=== PATIENT | male | born 1965 | race African-American/Black ===

== ENCOUNTER 2020-11-27 15:11 | Inpatient (IN) | payer OTHER ==
[~2020-11-27] VITALS: Ht 188 cm; Wt 96.3 kg
--- NOTE | 2020-11-27 15:36 | NUR ---
BIBS FROM HOME TO ER BED 2. AAOX4. NOT IN RESP DISTRESS, BREATHING EVENA DN UNLABORED. AMBULATORY. CAME IN FOR MID STERNAL CP STARTED @ 1300. PAIN IS 3/10 SHARP NON RADIATING. PT IS NOPTED WITH BILAT LOWER EXTREMETIES. MD WAS AT THE BEDSIDE FOR EVAL. ORDERS RECEIVED, NOTED AND CARRIED OUT. IV LINE ESTABLISHED ON R HAND 20G, BLOOD DRAWN AND GIVEN TO JUNIOR UNDERWRITER. PT ON MONITOR.
[2020-11-27] MEDS ORDERED: ASPIRIN 325 MG TABLET PO ONE (16:30)
[2020-11-27] MEDS ORDERED: FUROSEMIDE 40 MG/4 ML VIAL IV ONE (16:30)
[2020-11-27] MEDS ORDERED: ASPI-1169 PO (16:40)
[2020-11-27] MEDS ORDERED: FURO-144 PO (16:40)
[2020-11-27] MEDS ORDERED: CEPH250C PO (16:40)
[2020-11-27] MEDS ORDERED: CARV25TA2 PO (16:40)
[2020-11-27 16:45] LABS: BASOPHILS # (AUTO) 0.1 /CMM (0.0-0.2); BASOPHILS % (AUTO) 0.7 % (0.0-2.0); EOSINOPHILS % (AUTO) 2.5 % (0.0-6.0); HEMATOCRIT 45 % (39-51); HEMOGLOBIN 14.6 g/dL (13.5-17.5); LYMPHOCYTES # (AUTO) 1.1 /CMM (0.8-4.8); LYMPHOCYTES % (AUTO) 12.6 % (20.0-44.0); MEAN CORPUSCULAR HGB CONC 33 g/dl (31.0-36.0); MEAN CORPUSCULAR VOLUME 90 fL (80-96); MONOCYTES # (AUTO) 0.7 /CMM (0.1-1.30); MONOCYTES % (AUTO) 7.8 % (2.0-12.0); NEUTROPHILS # (AUTO) 6.5 /CMM (1.8-8.9); NEUTROPHILS % (AUTO) 76.4 % (43.0-81.0); PLATELET COUNT (AUTO) 181 /CMM (150-450); RED BLOOD CELL COUNT(AUTO) 4.97 MIL/uL (4.5-6.0); WHITE BLOOD COUNT (AUTO) 8.5 K/uL (4.3-11.0)
[2020-11-27 16:50] LABS: CALCIUM, SERUM 8.4 mg/dL (8.5-10.1); CARBON DIOXIDE 22 mmol/L (21-32); CHLORIDE 105 mmol/L (98-107); CREATININE 1.4 mg/dL (0.6-1.3); GLUCOSE 118 mg/dL (74-106); POTASSIUM 4.1 mmol/L (3.5-5.1); SODIUM SERUM 139 mmol/L (136-145); UREA NITROGEN, BLOOD 18 mg/dL (7-18)
[2020-11-27] MEDS ORDERED: ASPIRIN 325 MG TABLET ONE (16:55)
[2020-11-27] MEDS ORDERED: FUROSEMIDE 40 MG/4 ML VIAL ONE (16:55)
[2020-11-27 17:03] LABS: ALANINE AMINOTRANSFERASE 65 U/L (12-78); ALBUMIN 3.2 g/dL (3.4-5.0); ALKALINE PHOSPHATASE 133 U/L (46-116); ASPARTATE AMINOTRANSFERASE 41 U/L (15-37); B-TYPE NATRIURETIC PEPTIDE 3147 PG/ML (0-125); BILIRUBIN,DIRECT 0.4 mg/dL (0.0-0.2); BILIRUBIN,TOTAL 1.7 mg/dL (0.2-1.0); TOTAL PROTEIN, SERUM 7.1 g/dL (6.4-8.2)
--- NOTE | 2020-11-27 17:09 | NUR ---
PT PLACED ON O2 VIA NC @ 4LPM VIA NC D/T PT WAS NOTED WITH 02 SAT @ 89%
--- NOTE | 2020-11-27 18:16 | NUR ---
[facility] CALLED HEAVY FORGER PAGED.
--- NOTE | 2020-11-27 18:41 | NUR ---
ROOM ASSIGNMENT: [id number]
--- NOTE | 2020-11-27 19:16 | NUR ---
Call from lab. Rapid covid negative.
--- NOTE | 2020-11-27 19:29 | NUR ---
REPORT GIVEN TO YAIMA MASSEY FOR GUSTAVO
[2020-11-27 19:40] VITALS: BP 158/104
--- NOTE | 2020-11-27 19:40 | NUR ---
CHIEF INSPECTORCHAIR CAR DRIVER NOTE RECEIVED REPORT FROM REBECCA CARBALLO RN. PATIENT ADMITTED TO TELE. PATIENT A/O X3 ABLE TO MAKE NEEDS KNOWN. ON ROOM; TOLERATING WELL WITH NO SOB; DRY COUGH NOTED. EXTERNAL TRUCK BODY BUILDER READS NSR AT 83. PATIENT DENIES PAIN OR DISCOMFORT AT THIS TIME. SKIN IS INTACT; BLE +1 NONPITTING EDEMA NOTED. RIGHT HAND #20G; PATENT AND INTACT. ORIENTED PATIENT TO STAFF, UNIT, AND ROOM. ALL BELONGINGS ACCOUNTED FOR AND SIGNED PATIENT BELONGINGS LIST. SAFETY MEASURES IN PLACE: BED IN LOWEST LOCKED POSITION; SIDE RAILS UP X2, CALL LIGHT WITHIN EASY REACH, BED ALARMS ON. PATIENT IS IN STABLE CONDITION, WILL CONTINUE PLAN OF CARE.
[2020-11-27 21:40] VITALS: BP 158/104
[2020-11-27] MEDS ORDERED: ZOLPIDEM TARTRATE 5 MG TABLET PO PRN (22:00)
[2020-11-27] MEDS ORDERED: Z GUARD REMEDY 2 OZ OINT TP PRN (22:00)
[2020-11-27] MEDS ORDERED: VANCOMYCIN HCL 1.25 GM in IV D5W 260 ML IV ONE (22:00)
[2020-11-27] MEDS ORDERED: ACETAMINOPHEN 325 MG TABLET PO PRN (22:00)
[2020-11-27] MEDS ORDERED: HYDROCODONE/APAP 10/325MG TABLET PO PRN (22:00)
[2020-11-27] MEDS ORDERED: ONDANSETRON HCL/PF 4 MG/2 ML VIAL IVP PRN (22:00)
[2020-11-27] MEDS ORDERED: BUMETANIDE INJ 8 MG in IV NS 0.9% 48 ML IV ONE (22:00)
[2020-11-27] MEDS ORDERED: VANCOMYCIN 1 GM VIAL ONE (22:20)
[2020-11-27] MEDS ORDERED: BUMETANIDE INJ 0.25 MG/ML VIAL ONE (22:46)
[2020-11-27] MEDS: ENOXAPARIN SODIUM 40 MG/0.4 ML DISP.SYRIN SQ SCH (22:55)
[2020-11-27] MEDS ORDERED: VANCOMYCIN 1 GM in IV D5W 250 ML IV ONE (23:00)
[2020-11-28] VITALS: BP 127/79
[2020-11-28 04:00] VITALS: BP_SYST 112; BP_SYST 146; BP_DIAS 81; BP_DIAS 90
[2020-11-28 05:07] LABS: BASOPHILS # (AUTO) 0.1 /CMM (0.0-0.2); BASOPHILS % (AUTO) 1.1 % (0.0-2.0); EOSINOPHILS % (AUTO) 3.3 % (0.0-6.0); HEMATOCRIT 47 % (39-51); HEMOGLOBIN 15.2 g/dL (13.5-17.5); LYMPHOCYTES # (AUTO) 1.1 /CMM (0.8-4.8); LYMPHOCYTES % (AUTO) 15.2 % (20.0-44.0); MEAN CORPUSCULAR HGB CONC 33 g/dl (31.0-36.0); MEAN CORPUSCULAR VOLUME 91 fL (80-96); MONOCYTES # (AUTO) 0.6 /CMM (0.1-1.30); MONOCYTES % (AUTO) 9.1 % (2.0-12.0); NEUTROPHILS # (AUTO) 4.9 /CMM (1.8-8.9); NEUTROPHILS % (AUTO) 71.3 % (43.0-81.0); PLATELET COUNT (AUTO) 195 /CMM (150-450); RED BLOOD CELL COUNT(AUTO) 5.14 MIL/uL (4.5-6.0); WHITE BLOOD COUNT (AUTO) 6.9 K/uL (4.3-11.0)
[2020-11-28 05:36] LABS: CALCIUM, SERUM 8.9 mg/dL (8.5-10.1); CREATININE 1.6 mg/dL (0.6-1.3); MAGNESIUM 1.9 mg/dL (1.8-2.4); PHOSPHORUS 4.3 mg/dL (2.5-4.9); POTASSIUM 4.8 mmol/L (3.5-5.1)
[2020-11-28 05:37] LABS: THYROID STIMULATING HORMONE 1.612 uIU/mL (0.358-3.74)
--- NOTE | 2020-11-28 06:48 | NUR ---
OPERATIONS SUPPORT MANAGER CLOSING NOTE PATIENT A/O X4 ABLE TO MAKE NEEDS KNOWN. ON ROOM; TOLERATING WELL WITH NO SOB; DRY COUGH NOTED. EXTERNAL AIRPLANE PILOT HELPER READS NSR AT 82. PATIENT DENIES PAIN OR DISCOMFORT AT THIS TIME. SKIN IS INTACT; BLE +1 NONPITTING EDEMA NOTED. RIGHT HAND #20G; INFUSING BUMEX @ 10ML/HR PATENT AND INTACT. SAFETY MEASURES IN PLACE: BED IN LOWEST LOCKED POSITION; SIDE RAILS UP X2, CALL LIGHT WITHIN EASY REACH, BED ALARMS ON. PATIENT IS IN STABLE CONDITION, WILL ENDORSE PLAN OF CARE TO ONCOMING MORNING RN.
--- NOTE | 2020-11-28 07:04 | NUR ---
BAKING FACTORY WORKER OPENING NOTE RECEIVED PATIENT AWAKE IN BED. A/O X4. PT STABLE ON ROOM AIR. NO SOB NOTED. NO S/S OF RESPIRATORY DISTRESS. PATIENT IS ON EXTERNAL TELE ABSORPTION OPERATOR READING SR 77. NO C/O PAIN AT THIS TIME. IV ACCESS ON RIGHT HAND 20G INTACT, PATENT, AND FLUSHING WELL. SAFETY MEASURES MAINTAINED AT ALL TIMES. BED IN LOWEST LOCKED POSITION. SIDE RAILS UP X2. CALL LIGHT AND TABLE WITHIN REACH. WILL CONTINUE WITH PLAN OF CARE.
[2020-11-28 08:00] VITALS: BP 112/79
[2020-11-28] MEDS: ASPIRIN 81 MG TAB.CHEW PO SCH (08:17)
[2020-11-28] MEDS: FUROSEMIDE 40 MG TABLET PO SCH ×2 (08:18→16:34)
[2020-11-28] MEDS: CARVEDILOL 12.5 MG TABLET PO SCH ×2 (08:19→16:36)
[2020-11-28] MEDS: VANCOMYCIN 1.25 GM in IV D5W 250 ML IV SCH ×2 (11:35→23:30)
[2020-11-28 11:59] VITALS: BP 94/54
--- NOTE | 2020-11-28 12:33 | NUR ---
IV DISLODGED, PRESSURE APPLIED, SECURED WITH GAUZE AND TAPE.NO S/O BLEEDING OR INFILTRATION NOTED INSERTED IV IN RAC G#18, GOOD BLOOD RETURN NOTED, IV INTACT PATENT AND FLUSHING WELL. PT TOLERATED WELL, WILL CONTINUE WITH PLAN OF CARE
[2020-11-28 15:23] LABS: BILIRUBIN,URINE NEGATIVE (NEGATIVE); COLOR,URINE YELLOW (YELLOW); LEUKOCYTE ESTERASE ,URINE NEGATIVE (NEGATIVE); NITRITE, URINE NEGATIVE (NEGATIVE); PROTEIN,URINE NEGATIVE (NEGATIVE); UGLUCOSE NEGATIVE (NEGATIVE); UROBILINOGEN,URINE 0.2 EU/dL (0.2)
[2020-11-28 15:28] LABS: EOSINOPHIL,URINE None Seen
[2020-11-28 15:30] LABS: CREATININE, URINE < 13.0 MG/DL (30.0-125.0); URINE SODIUM, RANDOM 131 mmol/l (40-220)
[2020-11-28 15:32] LABS: URINE TOTAL PROTEIN < 6.0 mg/dL (0-11.9)
[2020-11-28 16:00] VITALS: BP_SYST 103; BP_SYST 107; BP_DIAS 65; BP_DIAS 83
--- NOTE | 2020-11-28 19:10 | NUR ---
GENERAL INTERNAL MEDICINE DOCTOR CLOSING NOTES PT AWAKE IN BED AT THIS TIME. PT REMAINED STABLE THROUGHOUT SHIFT. ALL CARE, NEEDS, MEDICATIONS AND TREATMENT ADMINISTERED ANTICIPATED PER ORDER. SAFETY PRECAUTIONS IN PLACE AND MAINTAINED AT ALL TIMES. BED IN LOWEST LOCKED POSITION, HOB ELEVATED, SIDE RAILS UPX2, CALL LIGHT AND TABLE WITHIN REACH. WILL ENDORSE TO PUSH BUTTON SWITCH ASSEMBLER NURSE FOR GUSTAVO
[2020-11-28 20:00] VITALS: BP 125/83
[2020-11-28] MEDS: ENOXAPARIN SODIUM 40 MG/0.4 ML DISP.SYRIN SQ SCH (20:29)
[2020-11-29] VITALS: BP 112/78
[2020-11-29 04:00] VITALS: BP 112/81
[2020-11-29 06:20] LABS: BASOPHILS % (AUTO) 0.8 % (0.0-2.0); EOSINOPHILS % (AUTO) 3.3 % (0.0-6.0); HEMATOCRIT 49 % (39-51); HEMOGLOBIN 16.1 g/dL (13.5-17.5); LYMPHOCYTES # (AUTO) 1.3 /CMM (0.8-4.8); LYMPHOCYTES % (AUTO) 19.9 % (20.0-44.0); MEAN CORPUSCULAR HGB CONC 33 g/dl (31.0-36.0); MEAN CORPUSCULAR VOLUME 91 fL (80-96); MONOCYTES # (AUTO) 0.7 /CMM (0.1-1.30); MONOCYTES % (AUTO) 11.1 % (2.0-12.0); NEUTROPHILS # (AUTO) 4.1 /CMM (1.8-8.9); NEUTROPHILS % (AUTO) 64.9 % (43.0-81.0); PLATELET COUNT (AUTO) 199 /CMM (150-450); WHITE BLOOD COUNT (AUTO) 6.3 K/uL (4.3-11.0)
[2020-11-29 07:00] LABS: ALBUMIN 2.9 g/dL (3.4-5.0); BILIRUBIN,TOTAL 1.9 mg/dL (0.2-1.0); CALCIUM, SERUM 8.6 mg/dL (8.5-10.1); CREATININE 1.5 mg/dL (0.6-1.3); MAGNESIUM 2.3 mg/dL (1.8-2.4); PHOSPHORUS 4.2 mg/dL (2.5-4.9); POTASSIUM 3.8 mmol/L (3.5-5.1); TOTAL PROTEIN, SERUM 6.9 g/dL (6.4-8.2)
--- NOTE | 2020-11-29 07:02 | NUR ---
BUTT PRESSER OPENING NOTE RECEIVED PATIENT AWAKE IN BED. A/O X4. PT STABLE ON ROOM AIR. NO SOB NOTED. NO S/S OF RESPIRATORY DISTRESS. PATIENT IS ON EXTERNAL TELE AUTOMOBILE BODY WORKER READING SR 73. NO C/O PAIN AT THIS TIME. IV ACCESS IN RAC 18G INTACT, PATENT, AND FLUSHING WELL. SAFETY MEASURES MAINTAINED AT ALL TIMES. BED IN LOWEST LOCKED POSITION. SIDE RAILS UP X2. CALL LIGHT AND TABLE WITHIN REACH. WILL CONTINUE WITH PLAN OF CARE. Addendum: 11/29/20 at 0757 by ANGELA CROWELL RN MS RN OPENING NOTE RECEIVED PATIENT AWAKE IN BED. A/O X4. PT STABLE ON ROOM AIR. NO SOB NOTED. NO S/S OF RESPIRATORY DISTRESS. NO C/O PAIN AT THIS TIME. IV ACCESS IN RAC 18G INTACT, PATENT, AND FLUSHING WELL. SAFETY MEASURES MAINTAINED AT ALL TIMES. BED IN LOWEST LOCKED POSITION. SIDE RAILS UP X2. CALL LIGHT AND TABLE WITHIN REACH. WILL CONTINUE WITH PLAN OF CARE.
[2020-11-29 08:00] VITALS: BP 147/99
[2020-11-29] MEDS: ASPIRIN 81 MG TAB.CHEW PO SCH (09:17)
[2020-11-29] MEDS: FUROSEMIDE 40 MG TABLET PO SCH ×2 (09:17→16:16)
[2020-11-29] MEDS: CARVEDILOL 12.5 MG TABLET PO SCH ×2 (09:18→16:17)
[2020-11-29] MEDS: VANCOMYCIN 1.25 GM in IV D5W 250 ML IV SCH (11:45)
[2020-11-29 12:00] VITALS: BP 123/85
--- NOTE | 2020-11-29 13:16 | NUR ---
RECEIVED ORDERS FROM DR. MILLER TO KEEP PT NPO POST MIDNIGHT FOR LEFT AND RIGHT HEART CATHETERIZATION SCHEDULED 11/30/2020. ORDERS READ BACK AND CARRIED OUT. WILL CONTINUE WITH PLAN OF CARE.
[2020-11-29 15:55] VITALS: BP 134/93
--- NOTE | 2020-11-29 18:29 | NUR ---
FLEECE TIER CLOSING NOTE PT AWAKE IN BED AT THIS TIME. PT REMAINED STABLE THROUGHOUT SHIFT. IV ACCESS IS INTACT AND PATENT. ALL CARE, NEEDS, MEDICATIONS AND TREATMENT ADMINISTERED ANTICIPATED PER ORDER. SAFETY PRECAUTIONS IN PLACE AND MAINTAINED AT ALL TIMES. BED IN LOWEST LOCKED POSITION, HOB ELEVATED, SIDE RAILS UP X2. CALL LIGHT AND TABLE WITHIN REACH. WILL ENDORSE TO ONCOMING NIGHT NURSE FOR CONTINUITY OF CARE.
--- NOTE | 2020-11-29 19:30 | NUR ---
TOWEL SEWER OPENING NOTE PT AWAKE IN BED AT THIS TIME. SAFETY PRECAUTIONS IN PLACE BED LOW LOCED SR X2. CALL LIGHT AND TABLE WITHIN REACH. VERBALIZED UNDERSTANDING TO CALL FOR ASSISTANCE IF NEEDED. ON OUTPATIENT FACILITY PHYSICAL THERAPIST READS SR. CORNELLIES CP. VANG TO BE NPO TONIGHT AT MIDNIGHT FOR PLANNED HEART CATH IN AM. PT VERBALIZED UNDERSTANDING. WILL CONT TO MONITOR.
[2020-11-29] MEDS: ENOXAPARIN SODIUM 40 MG/0.4 ML DISP.SYRIN SQ SCH (19:45)
--- NOTE | 2020-11-29 19:45 | NUR ---
CONTACTED ANGELA REGARDING LOVENOX SCHEDULED FOR TONIGHT. PT SCHEDULED FOR BELLHOP CAPTAIN IN THE AM. NEW ORDER TO HOLD LEE LOVENOX GIVEN.
[2020-11-29 20:07] VITALS: BP 96/63
[2020-11-29] MEDS ORDERED: VANCOMYCIN 1 GM in IV D5W 250ml IV SCH (23:00)
[2020-11-30 00:08] VITALS: BP 101/50
[2020-11-30 04:07] VITALS: BP 123/94
--- NOTE | 2020-11-30 06:34 | NUR ---
pm rn closing note patient in bed alert and oriented. patient is having second thoughts of having heart cath today. pt agreed remain npo until seen by doctors and quality lab assoc nurse. pt stabel cardiac monitor technician reads sr in 60's iv patent rigth ac##18 flushed. will cont to monitor and endorse to oncoming shift.
[2020-11-30 06:41] LABS: BASOPHILS # (AUTO) 0.1 /CMM (0.0-0.2); CALCIUM, SERUM 8.5 mg/dL (8.5-10.1); CREATININE 1.5 mg/dL (0.6-1.3); EOSINOPHILS % (AUTO) 3.1 % (0.0-6.0); HEMATOCRIT 48 % (39-51); HEMOGLOBIN 15.9 g/dL (13.5-17.5); LYMPHOCYTES # (AUTO) 1.2 /CMM (0.8-4.8); LYMPHOCYTES % (AUTO) 18.7 % (20.0-44.0); MEAN CORPUSCULAR HGB CONC 33 g/dl (31.0-36.0); MEAN CORPUSCULAR VOLUME 90 fL (80-96); MONOCYTES # (AUTO) 0.7 /CMM (0.1-1.30); MONOCYTES % (AUTO) 11.6 % (2.0-12.0); NEUTROPHILS # (AUTO) 4.1 /CMM (1.8-8.9); NEUTROPHILS % (AUTO) 65.6 % (43.0-81.0); PLATELET COUNT (AUTO) 194 /CMM (150-450); POTASSIUM 3.9 mmol/L (3.5-5.1); RED BLOOD CELL COUNT(AUTO) 5.36 MIL/uL (4.5-6.0); WHITE BLOOD COUNT (AUTO) 6.3 K/uL (4.3-11.0)
[2020-11-30] MEDS ORDERED: IV SET PRIMARY PUMP SET 1 EA INFUS.SET MC ONE (06:51)
[2020-11-30] MEDS ORDERED: IV NS 0.9% 500 ML IV ONE (06:51)
[2020-11-30] MEDS ORDERED: IODIXANOL 150 ML IV ONE (06:52)
[2020-11-30] MEDS ORDERED: MIDAZOLAM HCL 2 MG/2ML VIAL ONE (06:52)
[2020-11-30] MEDS ORDERED: LIDOCAINE HCL/MPF 1% 30 ML VIAL IJ ONE (06:52)
[2020-11-30] MEDS ORDERED: FENTANYL PF 100MCG/2ML AMPUL ONE (06:52)
[2020-11-30] MEDS ORDERED: NITROGLYCERIN ICAR 1,000 MCG/10 ML VIAL ICAR ONE (06:53)
--- NOTE | 2020-11-30 07:15 | NUR ---
CUSTOM SEAMSTRESS OPENING NOTE RECEIVED PATIENT IN BED. A/O X4. AMBULATORY. ON ROOM AIR, NO SOB NOTED. IN NO APPARENT DISTRESS. DENIES ANY PAIN OR DISCOMFORT AT THIS TIME. TELE READING SR 81. IV ACCESS ON R AC #18 G, INTACT. CURRENTLY ON NPO FOR HEART CATH. SAFETY MEASURES MAINTAINED. BED IN LOWEST POSITION, BRAKES LOCKED. SIDE RAILS UP X2. CALL LIGHT WITHIN REACH. WILL CONTINUE PLAN OF CARE.
[2020-11-30 08:00] VITALS: BP 117/75
[2020-11-30] MEDS: ASPIRIN 81 MG TAB.CHEW PO SCH (08:13)
[2020-11-30 08:14] VITALS: BP 117/75
[2020-11-30] MEDS: FUROSEMIDE 40 MG TABLET PO SCH (08:14)
[2020-11-30] MEDS: CARVEDILOL 12.5 MG TABLET PO SCH (08:14)
--- NOTE | 2020-11-30 11:24 | NUR ---
RN NOTE PATIENT LEFT AGAINST MEDICAL ADVICE. DR OROPEZA IS MADE AWARE. EXPLAINED ALL THE RISK/BENEFITS AND CONSEQUENCES. AMA FORM SIGNED. DISCHARGE INSTRUCTIONS STILL GIVEN TO THE PT AND VERBALIZED UNDERSTANDING. PATIENT WAS ACCOMPANIED BY BRENNAN MORGAN. REMOVED IV ACCESS AND ID [id number].
== END 2020-11-30 12:00 | disposition left against medical advice (07) | DRG 194 ==
LOC: ER 15:16 → EDBD 18:50 → TELE 18:50
PROVIDERS: ADMIT Nurse Practitioner Acute Care; ATTEND Student in an Organized Health Care Education/Training Program
DX: I13.0 Hypertensive heart and chronic kidney disease with heart failure and stage 1 through stage 4 chronic kidney disease, or unspecified chronic kidney disease (principal); N17.0 Acute kidney failure with tubular necrosis; L03.115 Cellulitis of right lower limb; I07.1 Rheumatic tricuspid insufficiency; I27.29 Other secondary pulmonary hypertension; L03.116 Cellulitis of left lower limb; I50.43 Acute on chronic combined systolic (congestive) and diastolic (congestive) heart failure; I25.110 Atherosclerotic heart disease of native coronary artery with unstable angina pectoris; E80.6 Other disorders of bilirubin metabolism; E88.9 Metabolic disorder, unspecified; R74.01 Elevation of levels of liver transaminase levels; K76.1 Chronic passive congestion of liver; N18.9 Chronic kidney disease, unspecified; Z79.82 Long term (current) use of aspirin; Z87.891 Personal history of nicotine dependence; Z20.822 Contact with and (suspected) exposure to COVID-19
CPT/HCPCS: 36415; 71045-TC; 76770-TC; 80048-TC; 80053-TC; 80061-TC; 80076-TC; 80202-TC; 82570-TC; 83735-TC; 83880; 84100-TC; 84155-TC; 84300-TC; 84443-TC; 84484-TC; 85025-TC; 85610-TC; 85730-TC; 87081-TC; 93307-TC; G0378; J1644; J1650; J1940; J2250; J3010; J3370; J3490; J7040; J7050; J7060; Q9967